=== PATIENT | male | born 1990 | race Hispanic/Latino ===

== ENCOUNTER 2020-12-31 02:57 | Emergency (ER) | payer SELFPAY ==
[2020-12-31] MEDS ORDERED: Ondansetron PF 4 MG/2 ML Vial ONE (03:46)
[2020-12-31 05:22] LABS: #Basophils 0.1 10x3/uL (0.0-0.2); #Eosinphils 0.2 10x3/uL (0.0-0.5); #Monocytes 0.9 10x3/uL (0.0-1.1); #Neutrophils 10.3 10x3/uL (1.5-8.4); %Basophils 0.8 % (0.0-2.0); %Eosinophils 1.2 % (0.0-6.0); %Lymphocytes 19.2 % (18.0-47.0); %Monocytes 6.1 % (0.0-10.0); %Neutrophils 72.3 % (40.0-75.0); Hemoglobin 16.8 g/dL (13.5-17.5); Mean Corpuscular HGB CONC 32.9 g/dL (32.0-36.0); Mean Corpuscular Hemoglobin 29.6 pg (27.0-33.0); Mean Corpuscular Volume 89.9 fl (81.2-95.1); Mean Platelet Volume 12.7 fl (7.4-10.4); Platelet Count 226 10x3/uL (150-450); RBC Distribution Width 13.2 % (11.5-14.5); Red Blood Cell (RBC) Count 5.67 10x6/uL (4.32-5.72); White Blood Cell (WBC) Count 14.3 10x3/uL (3.5-10.5)
[2020-12-31 05:25] LABS: SARS-CoV-2 NAA Rapid Test Not Detected (NotDetected)
[2020-12-31 06:24] LABS: ALT (SGPT) 111 U/L (8-55); AST (SGOT) 55 U/L (5-34); Albumin 4.5 g/dL (3.5-5.0); Alkaline Phosphatase 116 U/L (40-110); Anion Gap 24 mmol/L (10-20); BUN (Urea Nitrogen) 14 mg/dL (8.9-20.6); Bilirubin, Total 0.8 mg/dL (0.2-1.2); CK (CPK) 135 U/L (30-200); Calc. Creatinine Clearance 0 mL/min (70-130); Calcium 9.8 mg/dL (7.8-10.44); Carbon Dioxide 19 mmol/L (22-29); Chloride 97 mmol/L (98-107); Globulin 3.6 g/dL (2.4-3.5); Glucose 67 mg/dL (70-105); Potassium 3.6 mmol/L (3.5-5.1); Protein, Total 8.1 g/dL (6.0-8.3); Sodium 136 mmol/L (136-145)
[2020-12-31] MEDS ORDERED: Tetracaine 0.5% PF 4 ML BOT ONE (07:23)
[2020-12-31] MEDS ORDERED: Fluorescein Opthalmic Strip ONE (07:23)
[2020-12-31] MEDS ORDERED: Erythromycin Base 0.5% Oint 1 GM TUBE ONE (07:41)
== END 2020-12-31 07:45 | disposition home or self-care (01) ==
LOC: CSHERS 02:57
DX: R07.89 Other chest pain (principal); R00.0 Tachycardia, unspecified; D72.829 Elevated white blood cell count, unspecified; R74.8 Abnormal levels of other serum enzymes; R11.0 Nausea; R05 Cough; F17.210 Nicotine dependence, cigarettes, uncomplicated; Z20.822 Contact with and (suspected) exposure to COVID-19
CPT/HCPCS: 0240U; 36416; 71045; 80053; 82550; 84484; 85025; 93005; 96374; J2405